=== PATIENT | male | born 1950 | race Caucasian/White ===

== ENCOUNTER → 2018-03-31 10:40 | Outpatient (CLI) | payer MEDICARE, OTHER, SELFPAY ==
[2018-03-31 12:59] LABS: ALT 43 U/L (12-78); AST 50 U/L (15-37); Albumin 4.1 g/dL (3.4-5.0); Alkaline Phosphatase 96 U/L (46-116); BUN 14 mg/dL (7-18); Bilirubin, Total 0.7 mg/dL (0.2-1.0); CREATININE 0.97 mg/dL (0.70-1.30); Calcium 8.8 mg/dL (8.5-10.1); Chloride 102 mmol/L (98-107); Cholesterol 246 mg/dL (50-200); Glucose 88 mg/dL (70-100); HDL Cholesterol 88 mg/dL (40-60); LDL CHOLESTEROL 136 mg/dL (<100); Sodium 139 mmol/L (136-145); TROPONIN-I 8.2 ug/mL (4.0-12.0); Total Protein 7.7 g/dL (6.4-8.2); Triglyceride 94 mg/dL (30-150)
== END ==
PROVIDERS: PCP Internal Medicine; Visit Provider Internal Medicine
DX: E78.5 Hyperlipidemia, unspecified (principal); R56.9 Unspecified convulsions; Z12.5 Encounter for screening for malignant neoplasm of prostate
CPT/HCPCS: 36415; 80053; 80061; 83721; 80156; 84154

== ENCOUNTER 2018-04-21 08:36 | Outpatient (CLI) | payer MEDICARE, OTHER, SELFPAY ==
[2018-04-22 11:25] LABS: Hepatitis C Ab w Rflx HCV PCR Negative (NEGAT)
== END 2018-04-21 08:56 ==
PROVIDERS: PCP Internal Medicine; Visit Provider Internal Medicine
DX: R94.5 Abnormal results of liver function studies (principal)
CPT/HCPCS: 36415; 86803

== ENCOUNTER 2019-04-07 03:33 | Outpatient (CLI) | payer MEDICARE, OTHER, SELFPAY ==
[2019-04-07 11:05] LABS: Abs Immature Grans 0.02 k/cumm (0.0-0.09); Absolute Basophil Count 0.02 k/cumm (0.0-0.2); Absolute Eosinophil Count 0.29 k/cumm (0.0-0.7); Absolute Lymphocyte Count 1.22 k/cumm (1.2-3.4); Absolute Monocyte Count 0.54 k/cumm (0.11-0.7); Absolute Neutrophil Count 2.34 k/cumm (1.2-6.7); Basophils % 0.5; Eosinophils % 6.5; HCT 38.1 % (40.0-50.0); HGB 12.8 g/dL (13.5-17.5); Immature Grans % 0.5; Lymphocytes % 27.5; Mean Corp. HGB Concentration 33.6 g/dL (32.0-36.0); Mean Corpuscular Hemoglobin 32.8 pg (27.0-33.0); Mean Corpuscular Volume 97.7 fL (80-95); Mean Platelet Volume 9.8 fL (8.0-11.0); Monocytes % 12.2; Neutrophils % 52.8; Platelet Count 326 x1000/uL (130-400); RBC Distribution Width 11.9 % (11.8-14.1); White Blood Cell Count 4.43 k/cumm (4.4-10.8)
[2019-04-07 12:09] LABS: ALT 49 U/L (16-63); AST 40 U/L (15-37); Albumin 3.7 g/dL (3.4-5.0); Alkaline Phosphatase 94 U/L (46-116); Anion Gap 7.8 mmol/L (3-11); BUN 19 mg/dL (7-18); Bilirubin, Total 0.4 mg/dL (0.2-1.0); CO2 26.2 mmol/L (21.0-32.0); Calcium 8.5 mg/dL (8.5-10.1); Calculated LDL 103 mg/dL; Chloride 104 mmol/L (98-107); Cholesterol 184 mg/dL (50-200); Glucose 91 mg/dL (70-100); HDL Cholesterol 65 mg/dL (40-60); Potassium 4.5 mmol/L (3.5-5.1); Sodium 138 mmol/L (136-145); Total Protein 6.9 g/dL (6.4-8.2); Triglyceride 81 mg/dL (30-150)
== END 2019-04-07 03:53 ==
PROVIDERS: PCP Internal Medicine; Visit Provider Internal Medicine
DX: R50.9 Fever, unspecified (principal); E78.5 Hyperlipidemia, unspecified
CPT/HCPCS: 36415; 80053; 80061; 85025

== ENCOUNTER → 2019-09-01 09:52 | Outpatient (BNVA) | payer MEDICARE, OTHER, SELFPAY | PROVIDERS: PCP Internal Medicine; Referring Provider Internal Medicine; Visit Provider Physical Therapy Assistant | DX: Z12.11 Encounter for screening for malignant neoplasm of colon (principal); Z86.010 Personal history of colon polyps; I10 Essential (primary) hypertension ==

== ENCOUNTER 2019-09-30 08:45 | Day surgery (SDC) | payer MEDICARE, OTHER, SELFPAY ==
[2019-09-30 08:50] VITALS: BP 158/98; PULSE 92; RESP 18; TEMP 36.4; O2SAT 99
[2019-09-30] MEDS: Lactated Ringers 1,000 ML 80 ML IV (09:22)
--- NOTE | 2019-09-30 09:42 | W.PM.DSUDISC ---
Discharge Plan Disposition Patient Disposition: HOME Condition: Good Discharge Details Reason For Visit: Colonoscopy Attending Provider: Radha Cao Primary Care Provider: Ciara Jhaveri Home Meds and New Rx's Prescriptions: Continued multivitamin [Daily Multi-Vitamin] Tablet 1 tab PO DAILY RF: 0 lisinopril 20 mg tablet 20 mg PO DAILY Qty: 90 RF: 4 carbamazepine (mood stabiliz) 200 mg capsule, ER multiphase 12 hr 200 mg PO BID Qty: 180 RF: 3 aspirin [Aspirin Low-Strength] 81 MG tablet,chewable 81 mg PO DAILY RF: 0 atorvastatin 80 mg tablet 80 mg PO DAILY Qty: 90 RF: 3 Discontinued polyethylene glycol 3350 17 gram/dose powder 238 g PO ONCE Qty: 238 RF: 0 bisacodyl [Dulcolax (bisacodyl)] 5 mg tablet,delayed release (DR/EC) 5 mg PO ONCE Qty: 4 RF: 0 Discharge Instructions Additional Instructions: Findings: Your colonoscopy showed diverticulosis. No polyps were found. Follow up: Plan for colonoscopy in 5 years due to history of polyps. Please call if you develop: fevers >101.5 Nausea or Vomiting Abdominal pain that is not transient DAY SURGERY UNIT POST COLONOSCOPY INSTRUCTIONS 1. Because there will be medication in your system for the next 24 hours, you may feel a little sleepy. Your coordination will be affected. Therefore: a. Do not drive or operate dangerous equipment for 24 hours. b. Do not drink alcohol beverages for 24 hours (not even beer). c. Plan to go home and rest for the day. 2. Generally there are no restrictions on your activity after a day or so has gone by, but you may feel a bit fatigued for a few days. 3 After you arrive home you may have a light meal and return to a normal diet as you can tolerate it without feeling sick to your stomach. 4. After surgery, you may feel pain or discomfort. This should be only transient, but if it persists please contact your doctor. 5. If there are any questions regarding the findings of your procedure, please feel free to contact your doctor. 6. If you are unable to contact your doctor with a problem, contact the hospital at [phone]. 7. Continue all your regular medications unless directed otherwise. I understand the above instructions and have no questions. Signature of Patient or Responsible Adult Escort Date/Time Name of Responsible Adult Escort Signature of Nurse Date/Time Activity:: Activity as Tolerated Diet:: As Tolerated Discharge Orders Discharge Orders: Discharge Order (Routine); Ordered 09/30/19 Ordered By: Radha Cao DS: Diagnosis Discharge Diagnosis (1) History of colon polyps: Status: Acute (2) Diverticulosis: Status: Acute
[2019-09-30 10:55] VITALS: BP 107/71; PULSE 74; RESP 18; TEMP 36.4; O2SAT 98
--- NOTE | 2019-09-30 11:29 | COLE_ITS ---
DATE OF PROCEDURE September 30, 2019 PREOPERATIVE DIAGNOSIS History of colon polyps. POSTOPERATIVE DIAGNOSIS Diverticulosis. PROCEDURE Colonoscopy. SURGEON Radha Cao M.D. ANESTHESIA General. INDICATIONS This is a 69-year-old man, whose last colonoscopy in 2013 showed tubular adenomas. He presents for [facility] followup. He has no family history of colon cancer or symptoms. PROCEDURE He was placed in the left Romeo position. Propofol was titrated to sedation. Digital rectal examinatio n revealed no abnormalities. The scope was advanced to the cecum without difficulty. The ileocecal va lve and appendiceal orifice were clearly identified. His prep was excellent. The scope was slowly wit hdrawn with no abnormalities seen within the ascending, transverse, descending, sigmoid colon, or rec jaiden including on retroflexed view with the exception of moderate sigmoid diverticulosis. He tolerated the procedure well and was stable to Recovery. Due to his history of polyps. He should plan for a colonoscopy again in five years.
== END 2019-09-30 11:30 | disposition home or self-care (01) ==
PROVIDERS: PCP Internal Medicine; Visit Provider Surgery
PROC: 0DJD8ZZ Inspection of Lower Intestinal Tract, Via Natural or Artificial Opening Endoscopic (ICD-10-PCS; CPT 45378; principal; 2019-09-30 09:30)
DX: Z12.11 Encounter for screening for malignant neoplasm of colon (principal); K57.30 Diverticulosis of large intestine without perforation or abscess without bleeding; Z86.010 Personal history of colon polyps
CPT/HCPCS: G0105; J2001; J2250

== ENCOUNTER 2020-04-13 11:01 | Outpatient (CLI) | payer MEDICARE, OTHER, SELFPAY ==
[2020-04-13 12:45] LABS: HCT 40.5 % (40.0-50.0); HGB 13.3 g/dL (13.5-17.5); MCH 31.4 pg (27.0-33.0); MCHC 32.8 % (32.0-36.0); MCV 95.5 fL (80-95); MPV 9.7 fL (8.0-11.0); Platelet Count 303 10^3/uL (130-400); RBC 4.24 10^6/uL (4.36-5.78); RDW 11.8 % (11.8-14.1); RDW-SD 41.3 fL; WBC 5.89 10^3/uL (4.4-10.8)
[2020-04-13 13:04] LABS: Calculated LDL 115 mg/dL (<100); Cholesterol 210 mg/dL (<200); HDL Cholesterol 63 mg/dL (40-60); Triglyceride 161 mg/dL (<150)
== END 2020-04-13 11:21 ==
PROVIDERS: PCP Nurse Practitioner; Visit Provider Nurse Practitioner
DX: E78.2 Mixed hyperlipidemia (principal)
CPT/HCPCS: 36415; 80061; 85027

== ENCOUNTER 2021-03-19 12:24 | Outpatient (REF) | payer MEDICARE, OTHER, SELFPAY ==
[2021-03-20 12:10] LABS: Campylobacter PCR Negative (Negative); Salmonella PCR Negative (Negative); Shiga Toxin PCR Negative (Negative); Shigella/Enteroinvasive Ecoli Negative (Negative)
== END 2021-03-19 12:25 | disposition home or self-care (01) ==
LOC: LBN 12:24
PROVIDERS: PCP Nurse Practitioner; Visit Provider Nurse Practitioner Family
DX: R19.7 Diarrhea, unspecified (principal)
CPT/HCPCS: 87505

== ENCOUNTER 2021-05-15 03:48 | Outpatient (CLI) | payer MEDICARE, OTHER, SELFPAY ==
[2021-05-15 12:57] LABS: Calculated LDL 95 mg/dL (<100); Cholesterol 191 mg/dL (<200); HDL Cholesterol 58 mg/dL (40-60); Potassium 4.2 mmol/L (3.5-5.1); Triglyceride 194 mg/dL (<150)
[2021-05-15 22:26] LABS: PSA, Screening 2.5 ng/mL (0.0-6.5)
== END 2021-05-15 03:49 | disposition home or self-care (01) ==
LOC: LOS 03:48
PROVIDERS: PCP Nurse Practitioner; Visit Provider Nurse Practitioner
DX: I10 Essential (primary) hypertension; R73.09 Other abnormal glucose; E78.2 Mixed hyperlipidemia; R97.20 Elevated prostate specific antigen [PSA]
CPT/HCPCS: 36415; 80061; 84153; 82565; 83036; 84132

== ENCOUNTER 2021-11-11 02:55 | Outpatient (CLI) | payer MEDICARE, SELFPAY ==
[2021-11-11 22:36] LABS: PSA, Screening 2.8 ng/mL (<=6.5)
== END 2021-11-11 02:56 | disposition home or self-care (01) ==
PROVIDERS: PCP Nurse Practitioner; Visit Provider Nurse Practitioner
DX: R97.20 Elevated prostate specific antigen [PSA] (principal); Z12.5 Encounter for screening for malignant neoplasm of prostate
CPT/HCPCS: 36415; 84153

== ENCOUNTER 2022-05-06 02:07 | Outpatient (CLI) | payer MEDICARE, SELFPAY ==
[2022-05-06 12:16] LABS: Abs Immature Grans 0.01 10^3/uL (0.0-0.06); Absolute Basophil Count 0.03 10^3/uL (0.0-0.2); Absolute Eosinophil Count 0.21 10^3/uL (0.0-0.7); Absolute Monocyte Count 0.71 10^3/uL (0.1-0.8); Basophils % 0.5; Eosinophils % 3.7; HCT 36.6 % (40.0-50.0); HGB 12.4 g/dL (13.5-17.5); Immature Grans % 0.2; Lymphocytes % 19.4; MCH 31.6 pg (27.0-33.0); MCHC 33.9 % (32.0-36.0); MCV 93 fL (80-95); MPV 9.2 fL (8.0-11.0); Monocytes % 12.5; Neutrophils % 63.7; Platelet Count 289 10^3/uL (130-400); RBC 3.93 10^6/uL (4.36-5.78); RDW 12.3 % (11.8-14.1); RDW-SD 42.5 fL; WBC 5.66 10^3/uL (4.4-10.8)
[2022-05-06 12:46] LABS: Iron 133 ug/dL (65-175)
[2022-05-06 12:57] LABS: ALT 70 U/L (16-63); AST 40 U/L (15-37); Albumin 3.8 g/dL (3.4-5.0); Alkaline Phosphatase 88 U/L (46-116); Anion Gap 8.8 mmol/L (3-11); BUN 30 mg/dL (7-18); Bilirubin, Total 0.4 mg/dL (0.2-1.0); CO2 25.2 mmol/L (21.0-32.0); Calcium 8.9 mg/dL (8.5-10.1); Chloride 102 mmol/L (98-107); Estimated GFR 80.47 (mL/min/1.73m2); Glucose 110 mg/dL (74-106); Sodium 136 mmol/L (136-145); TSH (W/Ref FT4) 0.81 uIU/mL (0.36-3.74); Total Protein 7.2 g/dL (6.4-8.2)
[2022-05-06 14:04] LABS: Lab Add On Test DONE
[2022-05-06 14:23] LABS: Total Iron Binding Capacity 284 ug/dL (250-450)
[2022-05-06 14:47] LABS: Ferritin 629 ng/mL (26-388); Vitamin B12 291 pg/mL (193-986)
[2022-05-07 10:30] LABS: Transferrin 238 mg/dL (201-352)
== END 2022-05-06 02:08 | disposition home or self-care (01) ==
LOC: LOS 02:07
PROVIDERS: PCP Nurse Practitioner; Visit Provider Family Medicine
DX: D64.9 Anemia, unspecified (principal); E03.9 Hypothyroidism, unspecified; Z86.69 Personal history of other diseases of the nervous system and sense organs; Z79.899 Other long term (current) drug therapy; Z51.81 Encounter for therapeutic drug level monitoring
CPT/HCPCS: 36415; 80053; 80156; 82607; 82728; 82746; 83540; 83550; 84443; 84466; 85025

== ENCOUNTER 2022-07-11 10:42 | Outpatient (CLI) | payer MEDICARE, SELFPAY ==
--- NOTE | 2022-07-11 10:30 | RT.EKG_ITS ---
APPROVED REPORT Exam: Resting ECG Reason for Exam: irregular heart rate Patient Location: O HR:89 bpm ECG Measurements Heart Rate 89 AXIS VT 183 P 67 QRSd 107 QRS 75 QT 362 T 9 QTc 441 Conclusion Sinus rhythm...normal P axis, V-rate 50- 99 Ventricular premature complex...V complex w/ short R-R interval Otherwise normal
== END 2022-07-11 10:43 | disposition home or self-care (01) ==
LOC: DI.CM 10:43
PROVIDERS: PCP Nurse Practitioner Family; Visit Provider Nurse Practitioner Family
DX: I49.8 Other specified cardiac arrhythmias (principal)
CPT/HCPCS: 93010

== ENCOUNTER 2022-09-08 03:25 | Outpatient (CLI) | payer MEDICARE, SELFPAY ==
[2022-09-08 12:57] LABS: Hemoglobin A1C 5.5 % (<5.7)
== END 2022-09-08 03:26 | disposition home or self-care (01) ==
LOC: LOS 03:26
PROVIDERS: PCP Nurse Practitioner Family; Visit Provider Nurse Practitioner Family
DX: R73.03 Prediabetes (principal)
CPT/HCPCS: 36415; 83036

== ENCOUNTER 2023-07-23 03:24 | Outpatient (CLI) | payer MEDICARE, SELFPAY ==
[2023-07-23 12:27] LABS: ALT 89 U/L (16-63); AST 56 U/L (15-37); Alkaline Phosphatase 102 U/L (46-116); Anion Gap 9.8 mmol/L (3-11); BUN 20 mg/dL (7-18); Bilirubin, Total 0.5 mg/dL (0.2-1.0); CO2 25.2 mmol/L (21.0-32.0); CREATININE 1.1 mg/dL (0.70-1.30); Calcium 9.2 mg/dL (8.5-10.1); Calculated LDL 111 mg/dL (<100); Chloride 102 mmol/L (98-107); Cholesterol 219 mg/dL (<200); Estimated GFR 70.88 (mL/min/1.73m2); Glucose 96 mg/dL (74-106); HDL Cholesterol 77 mg/dL (40-60); Potassium 3.8 mmol/L (3.5-5.1); Sodium 137 mmol/L (136-145); Total Protein 7.2 g/dL (6.4-8.2); Triglyceride 158 mg/dL (<150)
[2023-07-23 17:58] LABS: Hepatitis C Ab w Rflx HCV PCR Negative (Negative)
[2023-07-23 18:00] LABS: HIV-1/2 Ag & Ab Screen Negative (Negative)
== END 2023-07-23 03:25 | disposition home or self-care (01) ==
LOC: LOS 03:24
PROVIDERS: PCP Nurse Practitioner Family; Visit Provider Nurse Practitioner Family
DX: E78.2 Mixed hyperlipidemia (principal); Z86.69 Personal history of other diseases of the nervous system and sense organs; Z51.81 Encounter for therapeutic drug level monitoring; Z79.899 Other long term (current) drug therapy; Z11.4 Encounter for screening for human immunodeficiency virus [HIV]; Z11.59 Encounter for screening for other viral diseases
CPT/HCPCS: 36415; 80053; 80061; 86803; 87389; 80156

== ENCOUNTER → 2023-09-15 01:33 | Outpatient (CLI) | payer MEDICARE, SELFPAY ==
--- NOTE | 2023-09-15 07:15 | DI.US_ITS ---
Exam(s) US AAA SCREENING EXAM: US AAA SCREENING CLINICAL HISTORY: screening for aaa, current smoker, f17.200 COMPARISON: No exams were available for comparison FINDINGS: Abdominal Aorta: The proximal and mid abdominal aorta were obscured by overlying bowel gas. Distal: 1.6 x 1.7 cm Iliac's: Right: 0.8 x 0.9 cm Left: 0.8 x 0.9 cm Mild atherosclerotic disease. IMPRESSION: 1. The proximal and mid abdominal aorta cannot be seen due to overlying bowel gas. 2. No evidence of an abdominal aortic aneurysm in the distal abdominal aorta or the visualized portio ns of the iliac arteries. DATA REPOSITORY:
--- NOTE | 2023-09-15 07:17 | DI.CTLCSR_ITS ---
Exam(s) CT CHEST LUNG CANCER SCREEN EXAM: CT CHEST LUNG CANCER SCREEN CLINICAL HISTORY: Screening for lung cancer,current smoker, f17.210 TECHNIQUE: Imaging Protocol: Axial computed tomography images with coronal and sagittal reformatted images were created and reviewed COMPARISON: No exams were available for comparison FINDINGS: Tracheobronchial tree: Patent where visualized. Pulmonary parenchyma: No consolidation or dominant measurable mass. There is mild scarring or atelect asis in the right middle lobe and the left lingula. Lung Nodules: None. Mediastinum and Brandy: No dominant adenopathy or fluid collection. The esophagus is unremarkable. Thyroid gland: Unremarkable. Lymph nodes: Unremarkable. Pleura: No effusion or pneumothorax. Heart: The heart is not dilated. Coronary artery calcification and/or stents are present. No pericar dial effusion. Aorta: Thoracic aorta non-dilated.Atherosclerosis. Upper abdomen: Unremarkable. Soft Tissues: Unremarkable. Bones: Within normal limits for the patient's age. IMPRESSION: No pulmonary nodules. Lung RADS Cat 1 - Negative: No nodules and definitely benign nodules Lung-RADS 1.0 CATEGORIES: Category 0 - Prior chest CT exam(s) being located for comparison. Category 1 - Annual screening in 12 months. No nodules or definitely benign nodules. Category 2 - Annual screening in 12 months. Benign appearance. Nodules with low likelihood of becomin g active cancer. Category 3 - 6-month follow-up. Probably benign. Short-term follow-up suggested. Nodules with low lik elihood of becoming active cancer. Category 4A - 3-month follow-up and CT/PET if >8 mm in size. Suspicious finding. Findings which requi re additional testing. Category 4B - Findings which require additional testing and tissue sampling. Suspicious finding. Category 4X - Category 3 or 4 nodules with additional features or imaging findings that increases the suspicion of malignancy. Modifier S- Potentially clinically significant finding. (Non lung cancer) RADIATION DOSE DELIVERED: 77.01mGy.cm Total DLP 77.01mGy.cmTotal DLP DATA REPOSITORY: All CT scans at this facility are submitted to the National Radiology Data Registry (NRDR) Dose Index Registry (DIR) with the [employer] ([employer]). RADIATION OPTIMIZATION: All CT scans at this facility use at least one of these dose optimization te chniques: automated exposure control; mA and/or kV adjustment per patient size (includes targeted exa ms where dose is matched to clinical indication); or iterative reconstruction.
== END ==
PROVIDERS: PCP Nurse Practitioner Family; Visit Provider Nurse Practitioner Family
DX: F17.210 Nicotine dependence, cigarettes, uncomplicated (principal); Z12.2 Encounter for screening for malignant neoplasm of respiratory organs
CPT/HCPCS: 71271; 76706

== ENCOUNTER 2024-08-01 03:21 | Outpatient (CLI) | payer MEDICARE, SELFPAY ==
[2024-08-01 12:46] LABS: ALT 112 U/L (16-63); AST 92 U/L (15-37); Albumin 3.8 g/dL (3.4-5.0); Alkaline Phosphatase 111 U/L (46-116); Anion Gap 9.3 mmol/L (3-11); BUN 20 mg/dL (7-18); Bilirubin, Total 0.58 mg/dL (0.2-1.0); CO2 26.7 mmol/L (21.0-32.0); Calcium 8.9 mg/dL (8.5-10.1); Calculated LDL 100 mg/dL (<100); Chloride 106 mmol/L (98-107); Cholesterol 212 mg/dL (<200); Estimated GFR 78.98 (mL/min/1.73m2); Glucose 99 mg/dL (74-106); HDL Cholesterol 82 mg/dL (40-60); Potassium 4.2 mmol/L (3.5-5.1); Sodium 142 mmol/L (136-145); TROPONIN-I 8.8 ug/mL (4.0-12.0); Total Protein 7.2 g/dL (6.4-8.2); Triglyceride 154 mg/dL (<150)
== END 2024-08-01 03:22 | disposition home or self-care (01) ==
LOC: LOS 03:21
PROVIDERS: PCP Nurse Practitioner Family; Visit Provider Nurse Practitioner Family
DX: E78.2 Mixed hyperlipidemia (principal); Z86.69 Personal history of other diseases of the nervous system and sense organs
CPT/HCPCS: 36415; 80053; 80061; 80156